=== PATIENT | female | born 2000 | race African-American/Black ===

== ENCOUNTER 2024-03-12 18:13 | Emergency (ER) | payer SELFPAY ==
[~2024-03-12] VITALS: Ht 160 cm; Wt 83.0 kg
[2024-03-12 18:28] VITALS: BP 125/74
[2024-03-12 18:30] VITALS: BP 118/82
[2024-03-12] MEDS ORDERED: CARBAMIDE PEROXIDE 6.5 % BTL AS ONE (18:35)
[2024-03-12] MEDS ORDERED: MUPIROCIN2 % EX (19:50)
[2024-03-12 20:18] VITALS: BP 118/82
== END 2024-03-12 20:18 | disposition home or self-care (01) | DRG 156 ==
LOC: ED 18:13
PROC: 3E1B78Z Irrigation of Ear using Irrigating Substance, Via Natural or Artificial Opening (ICD-10-PCS; principal; 2024-03-12)
DX: H61.22 Impacted cerumen, left ear (principal); H60.12 Cellulitis of left external ear